=== PATIENT | female | born 1945 | race Caucasian/White ===

== ENCOUNTER → 2017-03-11 | Outpatient (CLI) | payer BC, MEDICARE ==
[~2017-03-11] MED LIST: AMLO5TAB3 PO; ASPI81TA28 PO; ATOR-24 PO; B-COTAB18 PO; CHOL20009 PO; GLIM2TAB2 PO; LVMI SC; MAGN500T4 PO; METO50TA16 PO; MULT-506 PO; NIAC500T11 PO; OMEG10007 PO; OXYC-57 PO; SITA50TA3 PO; VALS320T PO
[2017-03-11 16:31] LABS: BASO % 0.1 %; BASO ABS # 0.01 K/uL (0-0.2); EOS % 1.5 %; EOS ABS # 0.14 K/uL (0-0.5); HEMATOCRIT 42.2 % (37-47); IG# 0.03 K/uL (0.00-0.02); LYMPH % 26.1 %; LYMPH ABS # 2.41 K/uL (1.2-3.4); MEAN CELL VOLUME 100.7 fL (80-100); MEAN CORPUSCULAR HEMOGLOBIN 33.4 pg (25-34); MEAN CORPUSCULAR HGB CONC 33.2 g/dl (32-36); MEAN PLATELET VOLUME 9.6 fL (7.4-10.4); MONO % 7.9 %; MONO ABS # 0.73 K/uL (0.11-0.59); NEUT % 64.1 %; NEUT ABS # 5.92 K/uL (1.4-6.5); PLATELET COUNT 254 K/uL (130-400); RED CELL DISTRIBUTION WIDTH CV 14.6 % (11.5-14.5); RED CELL DISTRIBUTION WIDTH SD 53.3 fL (36.4-46.3); WHITE BLOOD COUNT 9.24 K/uL (4.8-10.8)
[2017-03-11 19:12] LABS: BLOOD UREA NITROGEN 29 mg/dl (7-18); CALCIUM 10.1 mg/dl (8.5-10.1); CARBON DIOXIDE 25 mmol/L (21-32); CREATININE 1.55 mg/dl (0.60-1.20); GLUCOSE 251 mg/dl (70-99); POTASSIUM 4.1 mmol/L (3.5-5.1); SODIUM 135 mmol/L (136-145)
[2017-03-12 06:22] LABS: HEMOGLOBIN A1C 7.7 % (4.5-5.6)
--- NOTE | 2017-04-18 13:12 | CODING QUERY MEDICAL NECESSITY ---
SUPPORTING DIAGNOSIS NEEDED Dr. Grewal, A supporting diagnosis is required for the test/procedure performed on this patient in order for us to be reimbursed by the patient's insurance. Please provide a supporting diagnosis for the following test/procedure listed below next to the test name along with your signature. *If there is no additional diagnosis for this patient that would support the following test/procedure please document that below next to the test/procedure. Test(s)/Procedure(s) that require a supporting diagnosis: * [id number] GLYCATED HEMOGLOBIN DIAGNOSIS: DATE OF SERVICE: 03/11/17 Provider Signature: Date: Thank you Angel Rainey [facility] Information Management Once completed, please kindly fax back to [phone] For questions please call [phone]
== END | disposition home or self-care (01) ==
LOC: C.LAB 15:27
PROVIDERS: ATTEND Orthopaedic Surgery Sports Medicine
DX: S82.61XK Displaced fracture of lateral malleolus of right fibula, subsequent encounter for closed fracture with nonunion (principal); X58.XXXS Exposure to other specified factors, sequela; Z01.818 Encounter for other preprocedural examination

== ENCOUNTER 2017-03-14 08:50 | Day surgery (SDC) | payer BC, MEDICARE ==
[2017-03-12 14:38] VITALS: BMI 39.0
--- NOTE | 2017-03-13 19:11 | History and Physical ---
History & Physical Date Mar 13, 2017. Chief Complaint right ankle pain History of Present Illness The patient is a 71 year old female with complaints of chronic right ankle pain following an injury last year. She was treated for an avulsion fx of the medial malleolus but the fx became a nonunion. Her posterior tibialis tendon appeared to have a tear in it also. She is now being set up for surgical tx. Past Medical/Surgical History PMH: HTN, Hypercholesterolemia, Diabetes type 1, obesity. Past surgical hx: carpal tunnel release, back surgeries x 2, cholecystectomy, shoulder replacements x 2 Social hx: No tobacco use Allergies Coded Allergies: No Known Allergies (Unverified , 03/12/17) Home Medications Scheduled Amlodipine (Norvasc), 5 MG PO QAM Aspirin (Aspirin Ec), 81 MG PO QPM Atorvastatin (Lipitor), 40 MG PO QAM B-Complex Vitamins (Vitamin B Complex), 1 TAB PO QAM Cholecalciferol (Vitamin D), 2,000 UNITS PO QAM Fish Oil ([place]-3), 1 CAP PO DAILY Glimepiride (Glimepiride), 1 TAB PO TID Insulin Detemir (Levemir), 60 UNITS SC QAM Insulin Detemir (Levemir), 45 UNITS SC QPM Magnesium Oxide (Mg Supplement (Magnesium), 1,000 MG PO QPM Metoprolol Tartrate (Lopressor) (Lopressor), 50 MG PO BID Multivitamin (Multivitamin), 1 TAB PO QAM Niacin (Niacin), 2,000 MG PO QPM Sitagliptin (Januvia), 50 MG PO QAM Valsartan (Diovan), 320 MG PO QAM Physical Examination Skin: warm/dry, no rash Eyes: normal inspection ENT: normal ENT inspection Head: normocephalic, atraumatic Neck: supple, no adenopathy, trachea midline Respiratory/Chest: lungs clear, normal breath sounds, no respiratory distress Cardiovascular: regular rate, rhythm, no murmur Abdomen / GI: normal bowel sounds, non tender Extremities: + pertinent finding (Right ankle: medial ankle swelling, tender at the medial malleolus and PTT. 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 Right ankle posterior tibial tendon tear Right ankle instability Plan of Treatment Recommend a right ankle excision avulsion fx medial malleolus, repair posterior tibial tendon tear, possible open Brostrom. All potential risks, benefits, complications, alternatives, and rehab have been discussed and she wishes to proceed. She will be scheduled for 03.14.17.
[~2017-03-14] VITALS: Ht 160 cm; Wt 99.5 kg
[~2017-03-14 08:50] MED LIST changes: +AMLO-110 PO; -AMLO5TAB3 PO; +BUPIVACAINE 0.25% 30 ML VIAL ONE; +CEFAZOLIN 2000MG IV PUSH 10 ML IV SCH; +LACTATED RINGER'S 1000ML 1,000 ML IV SCH; -OXYC-57 PO; +ROPIVACAINE 0.5% 5 MG/ML 30 ML VIAL ONE
[2017-03-14 09:35] VITALS: BP 143/78; PULSE 88; TEMP 36.7; O2SAT 96; Ht 160 cm; Wt 99.5 kg
[2017-03-14] MEDS ORDERED: MIDAZOLAM HCL 1 MG/ML 2ML VIAL ONE (09:56)
[2017-03-14] MEDS ORDERED: FENTANYL CITRATE INJ 50 MCG/1 ML 2 ML VIAL ONE ×3 (09:56→13:37)
[2017-03-14] MEDS ORDERED: EpHEDrine SULFATE INJ 50 MG/ML AMP IV PRN (10:00)
[2017-03-14] MEDS ORDERED: ATROPINE SULFATE 0.1 MG/ML 5ML SYR IV PRN (10:00)
[2017-03-14] MEDS ORDERED: ONDANSETRON INJ 2 MG/ML 2 ML VIAL IV PRN ×2 (10:00→14:15)
--- NOTE | 2017-03-14 10:19 | History & Physical Bridge Note ---
H&P Re-Evaluation Bridge Note: I have examined the patient, reviewed the History & Physical and in the interval since the performance of the History & Physical I have noted the following changes of clinical significance: No changes noted
[2017-03-14] MEDS ORDERED: BACITRACIN 50000 UNIT VIAL ONE (10:50)
[2017-03-14] MEDS ORDERED: CIPROFLOXACIN 400MG / 200ML D5W ONE (10:59)
[2017-03-14] MEDS ORDERED: NURSING VERBAL MED ORDER ONE (11:00)
[2017-03-14] MEDS ORDERED: NEOSTIGMINE METHYLSULFATE 5 MG/5 ML SYR ONE (12:22)
[2017-03-14] MEDS ORDERED: GLYCOPYRROLATE INJ 0.2 MG/ML VIAL ONE (12:22)
[2017-03-14] MEDS ORDERED: ONDANSETRON INJ 2 MG/ML 2 ML VIAL ONE (12:22)
[2017-03-14] MEDS ORDERED: PROPOFOL IV EMULSION 10 MG/ML 20 ML VIAL IV ONE (12:22)
[2017-03-14] MEDS ORDERED: ROCURONIUM BROMIDE 10 MG/ML 5 ML VIAL IV ONE (12:22)
--- NOTE | 2017-03-14 13:47 | [facility] Post Operative Brief Note ---
Immediate Operative Summary Operative Date Mar 14, 2017. Pre-Operative Diagnosis Right ankle lateral malleolus nonunion avulsion fx. Right ankle posterior tibial tendon tear Right ankle instability Post-Operative Diagnosis Right ankle lateral malleolus nonunion avulsion fracture Right ankle posterior tibial tendon tear with tenosynovitis Right lateral ankle instability Exostoses 1st Tarsometatarsal joint Extensor Hallucis Longus Tendon Tear Procedure(s) Performed 1. Right Ankle Resection Nonunion Fracture Distal Fibula, 2. Debridement and Tenosynovectomy Posterior Tibial Tendon Tear, 3. Modified Brostrom Procedure with Application of Arthrex Internal Brace, 4. Cheilectomy Right First Tarsometatarsal Joint, 5. Debridement and Repair Extensor Hallucis Longus Tendon Tear Surgeon Dr. Grewal Commercial Maintenance Technician Surgeon(s) Juan Underwood PA-C Estimated Blood Loss 2 cc Findings See dict Specimens none per surgeon Drains None Anesthesia GETT w/ popliteal block Complication(s) None Disposition Recovery Room / PACU
[2017-03-14] MEDS ORDERED: ACETAMINOPHEN 325 MG TAB PO PRN (14:15)
[2017-03-14] MEDS ORDERED: OXYCODONE/ACETAMINOPHEN 5-325 TAB PO PRN (14:15)
[2017-03-14] MEDS ORDERED: MoRPHine SULFATE 2 MG/ML CARP IV PRN (14:15)
[2017-03-14] MEDS ORDERED: OXYCODONE HCL IR 5 MG TAB (IMMEDIATE RELEASE) PO PRN (14:15)
[2017-03-14] MEDS ORDERED: OXYC-57 PO (14:16)
--- NOTE | 2017-03-14 14:20 | Discharge Instructions ---
Discharge Instructions Date of Service Mar 14, 2017. Visit Reason for Visit: Displaced Fracture Of Lateral Malleolus Of Right F Discharge Discharge Diagnosis / Problem: Right ankle lateral malleolus nonunion avulsion fracture Discharge Goals Goal(s): Decrease discomfort, Improve function, Increase independence Activity Recommendations Activity Limitations: per Instructions/Follow-up section Weightbearing Status: Right non-weightbearing Anesthesia . Post Anesthesia Instructions: If you have had General Anesthesia or IV Sedation: * Do not drive today. * Resume driving when surgeon permits. * Do not make important decisions or sign legal documents today. * Call surgeon for: 1. Temperature elevations greater than 101 degrees F. 2. Uncontrollable pain. 3. Excessive bleeding. 4. Persistent nausea and vomiting. 5. Medication intolerance (nausea, vomiting or rash). * For nausea and vomiting use only clear liquids such as: tea, soda, bouillon until nausea subsides, then gradually increase diet as tolerated. * If you have any concerns or questions, call your surgeon's office. If physician is unavailable and it is an emergency, call 911 or go to the nearest emergency room. . Instructions / Follow-Up Instructions / Follow-Up ACTIVITY RECOMMENDATIONS: Limitations: No weight bearing to affected limb at all times. SPECIAL CARE INSTRUCTIONS: * Some drainage onto the dressing is normal and is no cause for alarm. * Some swelling is natural especially after walking. * When resting, keep your foot elevated above the level of your heart. * Call [facility] if you notice: -Increased drainage -Fever over 101 degrees F -Severe constant pain BANDAGE: * Leave bandage/cast in place unless otherwise directed. * Keep bandage/cast dry at all times. FOLLOW UP VISIT WITH DR. LOONEY If appointment is not already scheduled: Please call [facility] after you get home today to schedule a follow-up appointment for [address] Looney at . Diet Recommendations Recommended Home Diet: resume previous diet Procedures Procedures Performed: 1. Right Ankle Resection Nonunion Fracture Distal Fibula, 2. Debridement and Tenosynovectomy Posterior Tibial Tendon Tear, 3. Modified Brostrom Procedure with Application of Arthrex Internal Brace, 4. Cheilectomy Right First Tarsometatarsal Joint, 5. Debridement and Repair Extensor Hallucis Longus Tendon Tear Pending Studies Studies pending at discharge: no Medical Emergencies . Who to Call and When: Medical Emergencies: If at any time you feel your situation is an emergency, please call 911 immediately. . Non-Emergent Contact Non-Emergency issues call your: Surgeon Call Non-Emergent contact if: temperature is above 101.5, your pain is not controlled, your pain is worsening, wound has increased drainage, wound has increased redness . . "Provider Documentation" section prepared by Juan Underwood. . [place] Drug Monitoring Program Search Results: patient reviewed within database, no issues identified
[2017-03-14] MEDS: FENTANYL CITRATE INJ 50 MCG/1 ML 2 ML VIAL IV PRN ×2 (14:24→14:28)
[2017-03-14 14:55] VITALS: BP 145/65; PULSE 69; TEMP 36.3; O2SAT 96
--- NOTE | 2017-03-14 14:55 | Anesthesiology Progress Note ---
Anesthesia Post Op Note Date & Time Mar 14, 2017 at 14:55 Vital Signs Pain Intensity: 3 Vital Signs Past 12 Hours Date Time Temp Pulse Resp B/P (MAP) Pulse Ox O2 Delivery O2 Flow Rate FiO2 03/14/17 14:45 36.3 60 15 136/49 99 Nasal Cannula 2 03/14/17 14:35 62 17 143/50 99 Nasal Cannula 2 03/14/17 14:25 64 15 140/63 100 Nasal Cannula 4 03/14/17 14:15 65 19 149/62 100 Nasal Cannula 4 03/14/17 14:08 36.2 68 19 167/73 100 Nasal Cannula 4 03/14/17 09:35 36.7 88 20 143/78 (99) 96 Room Air Notes Mental Status: alert / awake / arousable, participated in evaluation Pt Amnestic to Procedure: Yes Nausea / Vomiting: adequately controlled Pain: adequately controlled Airway Patency, RR, SpO2: stable & adequate BP & HR: stable & adequate Hydration State: stable & adequate Anesthetic Complications: no major complications apparent
[2017-03-14 15:25] VITALS: BP 143/63; PULSE 59; O2SAT 93
[2017-03-14 15:55] VITALS: BP 134/60; PULSE 64; TEMP 36.4; O2SAT 93
--- NOTE | 2017-03-14 21:12 | OPERATIVE REPORT ---
DATE OF OPERATION: 03/14/2017 PREOPERATIVE DIAGNOSES: 1. Right ankle nonunion avulsion fracture distal fibula. 2. Right ankle lateral ligament instability. 3. Tear of the posterior tibial tendon. 4. Tenosynovitis of the posterior tibial tendon. 5. Exostosis of the first tarsometatarsal joint. POSTOPERATIVE DIAGNOSES: Same as above in addition to extensor hallucis longus attritional tear. PROCEDURE: 1. Right ankle resection avulsion fracture distal fibula. 2. Open modified Brostrom reconstruction with application Arthrex internal brace. 3. Debridement and tenosynovectomy of the posterior tibial tendon. 4. Exostectomy of the first tarsometatarsal joint. 5. Extensor hallucis longus debridement and repair. SURGEON: Dr. Grewal. DELIVERY TECH: Juan Underwood PA-C, who was present for patient positioning, sterile prep and drape, management of retractors and instruments. He was present through the critical portions of the case including wound closure, application of sterile dressing and transport of the patient to recovery. ANESTHESIA: General endotracheal tube with popliteal block. SPECIMENS: None. DRAINS: None. COMPLICATIONS: None. BLOOD LOSS: 5 mL PERTINENT HISTORY: This is a 71-year-old female who had sustained injury to her right ankle. She had an avulsion fracture of the distal aspect of the fibula which was treated conservatively. She then presented to my clinic and was noted to have persistent pain in the distal aspect of the fibula, had an MRI which demonstrated a nonunion of the avulsion fracture which was noted to be symptomatic as well as potential ligament instability lateral aspect of the ankle and posterior tibial tendon tenosynovitis and tearing. The patient was scheduled for surgery as indicated. The patient also had complaints of painful mass on the dorsum of the foot and noted to have an exostosis of the first tarsometatarsal joint. The patient was scheduled as appropriate for surgery. All potential risks, benefits, complications, alternatives, rehab, potential for incomplete relief of symptoms, need for further surgery, DVT, PE, , persistent pain, swelling, scarring, weakness, neurovascular injury, wound complications, hardware failure were discussed with the patient. The patient decided to proceed with the procedure as indicated. PROCEDURE IN DETAIL: The patient had popliteal block administered in the preop holding area and was then taken to the operative suite, placed supine on the operating room table. After reviewing consent and identification of proper operative site, the patient anesthetized, LMA was placed. Tourniquet was placed high on the right thigh over cast padding. Right lower extremity was then sterilely prepped and draped in usual fashion, elevated and exsanguinated with an Esmarch bandage and tourniquet inflated to 350 mmHg. Next, the 15 blade scalpel was used to make a curvilinear incision over the posterior tibial tendon sheath. The incision was then deepened through subcutaneous tissue. Meticulous hemostasis was achieved with electrocautery. Full thickness skin flaps were developed. The tendon sheath was then incised with 15 blade scalpel, there was noted to be tenosynovitis surrounding the posterior tibial tendon. Tenosynovectomy was then performed with a rongeur and tenotomy scissors. Next, the tendon was explored distally, noted to have degenerative partial tearing of the posterior tibial tendon, was then debrided with 15 blade scalpel and a rongeur. Next, the posterior tibial tendon was then copiously irrigated with sterile normal saline and the posterior tibial tendon sheath was then closed using 2-0 Vicryl. Next, the dermis was then closed with buried interrupted 3-0 Vicryl. Skin was then closed using 4-0 nylon sutures. Next, the 15 blade scalpel was used to make an incision in a curvilinear fashion on the distal aspect of the lateral malleolus. The incision was then deepened through subcutaneous tissue. Meticulous hemostasis was achieved with electrocautery. Full thickness skin flaps were developed, followed by identification of the superficial peroneal retinaculum which was then retracted and protected. Next, the periosteal tissue on the distal aspect of the fibula was then incised and the large nonunion fragment on the distal lateral aspect of the lateral malleolus was then encountered and then excised. Next, anterior drawer testing and talar tilt testing was then performed noting significant instability as the area of the nonunion was attached previously to the remnants of the ATFL and the CFL ligaments. At this point, decision was made to complete Brostrom reconstruction of the lateral ligaments. Next, the peroneal tendon sheath was then carefully entered with a 15 blade scalpel. The tendon was then retracted and then plication and reefing was then performed of the calcaneofibular ligament with a #2 FiberWire suture. Next, the lateral process of the talus was identified and commercial drone pilot holes drilled for the 4.75 mm SwiveLock. SwiveLock was then implanted with 2 fiber tapes. Next, the distal aspect of the fibula was then decorticated with a rongeur to encourage tissue healing into the bone and a small flap of periosteum was then partially elevated from the distal lateral aspect of the fibula. Next, a commercial drone pilot hole was drilled into the distal lateral aspect of the fibula for placement of Bio-Tenodesis screw. Next, a free needle was then used to weave the FiberTapes under the periosteal sleeve on the lateral aspect of the fibula, followed by placement of the FiberTapes through the eyelet of the Bio-Tenodesis screw which was then placed on the distal lateral aspect of the fibula, the foot held in neutral dorsiflexion and slight eversion with a hemostat under the FiberTapes to prevent over tightening. Next, after the FiberTapes were secured, excess FiberTape was then cut with a 15 blade scalpel. Next, the stay sutures in the SwiveLock anchor were then passed through the superficial peroneal retinaculum and then under the distal lateral periosteal tissue on the distal aspect of the fibula. Foot was held in neutral dorsiflexion and eversion. These sutures were then tied and excess suture was then cut with a 15 blade scalpel. Next, the wound was copiously irrigated with sterile normal saline. Peroneal tendon sheath was then closed using 2-0 Vicryl and the dermis was then closed using buried interrupted 3-0 Vicryl, skin was closed with 4-0 nylon. The anterior drawer test and talar tilt test were then negative after repair of the lateral ligament complex. Next, attention was then directed toward the dorsum of the first tarsometatarsal joint. 15 blade scalpel was used to make an incision over the first tarsometatarsal joint, deepened through subcutaneous tissue. Meticulous hemostasis was achieved with electrocautery. Full thickness skin flaps were developed. 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 Next, the tendon was then retracted and protected with a House retractor. 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 Next, an osteotome and mallet were then used to resect the dorsal exostosis to the first tarsometatarsal joint. Next, a rongeur was then used to smooth and contour the first tarsometatarsal joint. Next, the wound was copiously irrigated with sterile normal saline until clear. The extensor hallucis longus tendon was then repaired using a modified Pastor suture using 4-0 FiberWire suture. This was then oversewn with simple buried locked looped suture. Next, the wound was copiously irrigated with sterile normal saline, followed by closure of the dorsal capsular tissue with buried interrupted 2-0 Vicryl and the dermis was then closed using buried interrupted 3-0 Vicryl, skin was then closed using 4-0 nylon. Next, sterile compressive dressing was applied consisting of Xeroform gauze, sterile 4 x 4's and cast padding. Next, a bulky Miquel Brennan plaster splint was applied overwrapped with an Stephane wrap, foot was held in neutral dorsiflexion with slight eversion. The tourniquet was released. The patient was awakened and taken to recovery in stable condition. I attest to the content of the Intraoperative Record and any orders documented therein. Any exception s are noted below.
== END 2017-03-14 16:20 | disposition home or self-care (01) ==
LOC: C.ACU 08:50
PROVIDERS: ATTEND Orthopaedic Surgery Sports Medicine
DX: S82.891A Other fracture of right lower leg, initial encounter for closed fracture (principal); M25.371 Other instability, right ankle; S86.811A Strain of other muscle(s) and tendon(s) at lower leg level, right leg, initial encounter; M65.871 Other synovitis and tenosynovitis, right ankle and foot; M25.871 Other specified joint disorders, right ankle and foot; I10 Essential (primary) hypertension; E11.9 Type 2 diabetes mellitus without complications; N18.3 Chronic kidney disease, stage 3 (moderate); E66.01 Morbid (severe) obesity due to excess calories; Z90.49 Acquired absence of other specified parts of digestive tract; Z90.89 Acquired absence of other organs; Z98.890 Other specified postprocedural states